=== PATIENT | male | born 1950 | race Caucasian/White ===

== ENCOUNTER 2021-01-13 13:20 | Emergency (ER) | payer MEDICARE, SELFPAY ==
[2021-01-13 13:36] VITALS: BP 145/67; BP 156/83; PULSE 73; RESP 18; TEMP 36.8; O2SAT 95; BMI 26.9
--- NOTE | 2021-01-13 13:53 | ED.GENADULT ---
HPI - General Adult General Chief complaint: General Medical Stated complaint: HEAD/CHEST PRESSURE Time Seen by Provider: 01/13/21 13:53 Source: patient Mode of arrival: ambulatory Limitations: other (agitated) History of Present Illness MD complaint: chest pain, high blood pressure Onset (ago): unknown Location: chest Quality: other Pain Consistency: constant Exacerbating factors: other (states it started at the [facility], you dont know, where there is MONEY. ) Treatments prior to arrival: none Related Data Allergies Allergy/AdvReac Type Severity Reaction Status Date / Time aspirin [ASA] Allergy Mild NAUSEA & Unverified 08/01/20 18:59 VOMITING, HIVES, hives ibuprofen [From MOTRIN] Allergy Mild RASH Unverified 08/01/20 18:59 Motrin Allergy Unknown anaphylaxis Uncoded 10/09/19 00:00 Review of Systems Review of Systems: ROS unable to be obtained due to agitation [facility] Social History Social History Advance Directives: No Advance Directives Information Provided: No Physical Exam Vital Signs: Vital Signs: Last Vital Signs Temp 98.2 F 01/13/21 13:36 Pulse 73 01/13/21 13:36 Resp 18 01/13/21 13:36 BP 145/67 H 01/13/21 13:36 Pulse Ox 95 01/13/21 13:36 Body Mass Index 26.9 Appearance: Alert. Oriented X3. No acute distress. Agitated. i was at the [facility], I have a pain, if you don't understand, you're a crazy lady. I came here to see a pretty lady. Eyes: Pupils equal, round and reactive to light. Neck: Normal inspection. Neck supple. CVS: Normal heart rate and rhythm. Pulses normal. Respiratory: No respiratory distress. Skin: Skin warm and dry. Normal skin color. Extremities: No lower extremity edema. Neuro: Oriented X 3. No motor deficit. No sensory deficit. Medical Decision Making MDM Narrative Medical decision making narrative: 70 yo male presented with c/o HTN, headache and chest pain that I think started while at the [facility], on arrival to the room he was already rude to registration staff then when I attempted to ask him questions he became aggressive and would not speak to me anymore, he appeared offended when I asked if he checked his blood pressure at home and what time and what he was doing when the chest pain started he stood up told me to leave and walked out of the ED with a steady gait in no distress Discharge Plan Discharge Clinical Impression: Chest pain Qualifiers: Chest pain type: unspecified Qualified Code(s): R07.9 - Chest pain, unspecified Patient Disposition: Left Against Medical Advice Stand Alone Forms: Against Medical Advice Discharge Date/Time: 01/13/21 14:00
--- NOTE | 2021-01-13 13:58 | PC.NURSE ---
PT ARRIVED VIA EMS FOR HTN, CYNTHIA NIELSEN MD WENT IN TO EVALUATE PATIENT AND GET INFORMATION AND PT STARTED YELLING AT MD TO GET OUT OF HERE YOU CRAZY LADY NOW LEVING AMA
== END 2021-01-13 14:00 | disposition left against medical advice (07) ==
LOC: HO.ED 13:51
PROVIDERS: Emergency Provider Emergency Medicine; PCP Internal Medicine
DX: R07.9 Chest pain, unspecified (principal); I10 Essential (primary) hypertension
CPT/HCPCS: 99282

== ENCOUNTER 2021-05-16 12:51 | Outpatient (REF) | payer MEDICARE, MEDICAID, SELFPAY ==
--- NOTE | ~2021-05-16 | CT_ITS ---
EXAMINATION: CT MAXILLOFACIAL WITHOUT CONTRAST CLINICAL INFORMATION: Sinonasal polyp. Deviated septum. COMPARISON: None. TECHNIQUE: Multidetector helical imaging was performed in the axial plane with generation of coronal and sagittal reformatted images. This CT examination was performed using dose optimization techniques as appropriate, variously including the following: *Automated exposure control *Adjustment of mA and/or kV according to patient size (this includes techniques or standardized protocols for targeted exams where dose is matched to indication/reason for exam; i.e. extremities or head) *Use of iterative reconstruction technique DLP: 141 mGy-cm. FINDINGS: The frontal sinuses are clear. There is minimal ethmoid mucosal thickening. The sphenoid sinuses and sphenoethmoidal recesses are clear. The maxillary sinus and ethmoidal infundibula are clear. 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 No fluid levels are seen. There is mild sigmoid deviation of the nasal septum with leftward projecting septal spur. The ethmoid roofs are symmetric. The lamina papyracea are intact. The carotid impressions are covered by bone. No maxillary periapical disease is seen. The mastoid air cells and visualized middle ear cavities are well aerated. The orbits are normal. The TMJs are unremarkable. Encephalomalacic and gliotic changes are seen within the left inferior frontal lobe and the left more than right anterior inferior temporal lobes. No acute intracranial abnormality is seen. CT/CT sinus wo con IMPRESSION: Minimal ethmoid mucosal thickening. Paranasal sinuses are otherwise clear without fluid levels. Sigmoid deviation of the nasal septum with leftward projecting septal spur. Incidentally noted encephalomalacic and gliotic changes in the left inferior frontal lobe and left more than right anterior inferior temporal lobes presumably reflecting sequela of prior trauma.
== END 2021-05-16 12:52 | disposition home or self-care (01) ==
LOC: HO.CT 12:51
PROVIDERS: PCP Internal Medicine; Visit Provider Otolaryngology
DX: J33.8 Other polyp of sinus (principal); J34.2 Deviated nasal septum
CPT/HCPCS: 70486